=== PATIENT | male | born 1975 | race Caucasian/White ===

== ENCOUNTER 2017-12-23 07:44 | Outpatient (RCR) | payer MEDICARE, MEDICAID ==
[~2017-12-23 07:44] MED LIST: ACET-2043 PO; ALLO-119 PO; BACOUD TP; CALC-630 PO; CETY454C2 TP; CHOL200022; CHOL200025 PO; CHOL200038 PO; CLIN-75 PO; CYA1000 PO; EZET10TA41 PO; GEMF600T91 PO; GUAI-244 PO; GUAI-537 PO; HYDR28.415 TP; LEVO137T23 PO; LEVO150T78 PO; LOPE-84 PO; LOR5/325 PO; LORA-1455 PO; MAGN1TAB2 PO; MELA1TAB27 PO; MENT118G; MULT1TAB64 PO; NAPR-744 PO; OXYGENHOME INH; PROC10TA4 PO; VITA-200 PO
[2017-12-23 08:15] VITALS: BP 115/65
[2017-12-23] MEDS ORDERED: VIT1CAPS42 PO (08:33)
[2017-12-23] MEDS ORDERED: GUAI-244 PO (08:48)
[2017-12-23] MEDS ORDERED: CHOL10005 PO (08:48)
--- NOTE | 2017-12-23 15:57 | ONCOLOGY FOLLOW UP NOTE ---
EVENT DATE: December 23, 2017 DIAGNOSES 1. 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 2. Hypothyroidism. 3. History of stomach ulcer. 4. History of sleep apnea. 5. History of depression. CHIEF COMPLAINT The patient is here today for followup of his seminoma of the left testicle. ONCOLOGY HISTORY The patient is a 41-year-old male with Down syndrome from the [facility]. 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 The patient is doing very well without any complaints except for mild fatigue sometime, but he is working two days per week and having classes another two days, and this could be the reason for his fatigue. PRESENTATION Abnormal testicular exam during his annual followup done by his primary care provider, GITA Saunders. DIAGNOSTIC EVALUATION Testicular ultrasound done May 31, 2015 revealed 3.3 x 2.3 cm lobulated, hypoechoic left intratesticular mass, highly concerning for malignancy. The right testicle was normal. Alpha fetoprotein was normal at 5.4. Beta HCG was less than 1. PROCEDURE Left radical orchiectomy done on June 10, 2015. PATHOLOGY Positive for 3.5 x 3 x 2.5 cm classic type seminoma with negative margins. The tumor was confined to the testis with focal involvement of the rete testis. Lymphovascular invasion was positive. No lymph nodes removed. STAGING WORKUP CT of abdomen and pelvis done on June 20, 2015 showed post surgical changes in the left inguinal region with marked bladder wall thickening, but no retroperitoneal lymphadenopathy. Chest x-ray done on June 20, 2015 without any acute cardiopulmonary process seen. STAGE Stage IB (pT2 pNx cM0). TREATMENT The patient started treatment with carboplatin AUC of 7 on August 02, 2015. The patient completed two cycles of carboplatin AUC of 7 on August 23, 2015. HISTORY OF PRESENT ILLNESS Patient is here today for followup of his seminoma of the left testicle. He is doing very well currently, except for recent upper respiratory tract infection with runny nose, sore throat, cough, shortness of breath and wheezing. Other than that he is stable. PAST MEDICAL HISTORY 1. Stomach ulcer. 2. Hypothyroidism. 3. Heart murmur. 4. Sleep apnea on CPAP. 5. Depression. PAST SURGICAL HISTORY 1. [place] tooth extraction. 2. Placement of ear tube. 3. Tonsillectomy. 4. Left radical orchiectomy done May 23, 2015. FAMILY HISTORY Mother is alive. She lives in [place]. She is his guardian, but no family history could be obtained from the patient. SOCIAL HISTORY The patient has Down syndrome. He lives at [facility]. No abuse of tobacco, alcohol or drugs. CURRENT MEDICATIONS 1. Tylenol p.r.n. 2. Allopurinol 300 mg daily. 3. Antacid chewable tablet 500 mg tablet. 4. Antidiarrheal p.r.n. 5. Baby oil one drop in the ear. 6. Bacitracin zinc ointment topically p.r.n. 7. Biofreeze topically p.r.n. 8. Cetaphil cream topical. 9. Cetaphil daily, superficial lotion topically. 10. Clindamycin 600 mg oral. 11. Gemfibrozil 600 mg tablet twice daily. 12. Hydrocodone/APAP 5/325 mg q.4h. p.r.n. 13. Hydrocortisone 1% cream for itchy skin. 14. Levothyroxine 137 mcg every other day to alternate with 150 mcg. 15. Melatonin 3 mg tablet once daily. 16. Multivitamin once daily. 17. Naproxen 220 mg as needed. 18. CPAP. 19. Oyster shell calcium 500 mg tablet once daily. 20. Robafen 100 mg/5 mL syrup as needed. 21. Vitamin D3 at 2000 U daily. 22. Vitamin E 400 U daily. 23. Zetia 10 mg tablet daily. ALLERGIES INSULIN, AUGMENTIN, AMOXICILLIN. REVIEW OF SYSTEMS CONSTITUTIONAL: No appetite or weight change. No fever, chills or sweating. No recent infection. HEENT: Ears: No tinnitus or hearing problem. Nose: He has nasal discharge. No epistaxis. Throat: He has sore throat. No mouth ulcers. Eyes: No diplopia or visual changes. RESPIRATORY: He has cough, shortness of breath and wheezing. No expectoration or hemoptysis. CARDIOVASCULAR: No chest pain, orthopnea, or paroxysmal nocturnal dyspnea (PND) . No edema. No palpitations. GASTROINTESTINAL: No nausea or vomiting. No diarrhea or constipation. No change in bowel movements. No heartburn or swallowing difficulties. No abdominal pain. No jaundice. No hematemesis, melena or rectal bleeding. GENITOURINARY: No hematuria or dysuria. MUSCULOSKELETAL: No pain in the muscles, joints or bones. NEUROLOGICAL: No tingling or numbness in the hands or feet. No headaches or convulsions. HEMATOLOGIC/LYMPHATIC: He is weak, tired, and fatigued. SKIN: No skin rash or lumps. PSYCHIATRIC: No anxiety or depression. PHYSICAL EXAMINATION GENERAL: Looks stable. Well-developed, well-nourished, and in no acute distress. VITAL SIGNS: Blood pressure 115/65, pulse 88 per minute, respirations 16 per minute, temperature 99.8, pulse ox 85% on room air. HEENT: Head: Atraumatic. No sinus tenderness to palpation. Eyes: No icterus or conjunctivitis. Mouth and throat: No oral thrush or mucositis. NECK: Supple. No cervical or supraclavicular lymphadenopathy. LUNGS: Clear to auscultation and percussion bilaterally. HEART: Regular rate and rhythm. No gallops, murmurs, clicks or rubs. ABDOMEN: Soft and lax. No tenderness. No hepatosplenomegaly. No masses. EXTREMITIES: No cyanosis, clubbing or edema. LYMPHATICS: No peripheral lymphadenopathy. NEUROLOGICAL: Conscious, alert and oriented times three. No focal motor or sensory deficits. PSYCHIATRIC: The patient has mental retardation from his Down syndrome, but his IQ is higher than other Down syndrome patients. SKIN: No skin rash, bruise or purpuric eruption. DIAGNOSTIC DATA CBC showed white count 5.5, hemoglobin 18.4, hematocrit 52.2, platelets 231, 000. Chem panel is totally normal, except blood sugar 48. Alpha fetoprotein is normal at 5.4. Beta HCG is normal at less than 1, and the LDH is normal at 141. Chem panel is totally normal. ASSESSMENT 1. 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 All margins were negative. Lymphovascular invasion was positive. No lymph nodes were resected. CT abdomen and pelvis and chest x-ray were negative for metastasis. The patient received two cycles of carboplatin with AUC of 7 between August 02, 2015 through August 30, 2015. Tumor markers with LDH, alpha fetoprotein and beta HCG all came within the normal range and the patient is doing very well currently except for recent upper respiratory tract infection. I am planning to continue followup. I will see him again in three months with CBC, chem panel, alpha fetoprotein, beta HCG and LDH. 2. Hypothyroidism on supplement. 3. Down syndrome. 4. History of stomach ulcer. 5. History of sleep apnea on CPAP. 6. History of depression. PLAN 1. Continue followup. 2. Patient to return in three months with CBC, chem panel, alpha fetoprotein, LDH and beta HCG. 3. Patient to contact us for any new concerns or complaints. YEIMI
== END 2018-01-05 15:03 | disposition home or self-care (01) ==
LOC: ONC 07:44
PROVIDERS: ATTEND Internal Medicine Hematology
DX: Z85.47 Personal history of malignant neoplasm of testis (principal); E03.9 Hypothyroidism, unspecified; Q90.9 Down syndrome, unspecified; Z79.899 Other long term (current) drug therapy; Z92.21 Personal history of antineoplastic chemotherapy
CPT/HCPCS: 99212

== ENCOUNTER 2018-03-31 08:41 | Outpatient (RCR) | payer MEDICARE, MEDICAID ==
[~2018-03-31 08:41] MED LIST changes: +CHOL10005 PO; +VIT1CAPS42 PO
[2018-03-31 09:06] VITALS: BP 121/73
--- NOTE | 2018-03-31 19:51 | ONCOLOGY FOLLOW UP NOTE ---
EVENT DATE: March 31, 2018 DIAGNOSES 1. Stage IB ([id number]) left testicular classic seminoma. 2. Hypothyroidism. 3. History of stomach ulcer. 4. History of sleep apnea. 5. History of depression. CHIEF COMPLAINT The patient is here today for followup of his seminoma of the left testicle. ONCOLOGY HISTORY The patient is a 43-year-old male with Down syndrome from the [facility]. 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 The patient is doing very well without any complaints except for mild fatigue sometime, but he is working two days per week and having classes another two days, and this could be the reason for his fatigue. PRESENTATION Abnormal testicular exam during his annual followup done by his primary care provider, GITA Saunders. DIAGNOSTIC EVALUATION Testicular ultrasound done May 31, 2015 revealed 3.3 x 2.3 cm lobulated, hypoechoic left intratesticular mass, highly concerning for malignancy. The right testicle was normal. Alpha fetoprotein was normal at 5.4. Beta HCG was less than 1. PROCEDURE Left radical orchiectomy done on June 10, 2015. PATHOLOGY Positive for 3.5 x 3 x 2.5 cm classic type seminoma with negative margins. The tumor was confined to the testis with focal involvement of the rete testis. Lymphovascular invasion was positive. No lymph nodes removed. STAGING WORKUP CT of abdomen and pelvis done on June 20, 2015 showed post surgical changes in the left inguinal region with marked bladder wall thickening, but no retroperitoneal lymphadenopathy. Chest x-ray done on June 20, 2015 without any acute cardiopulmonary process seen. STAGE Stage IB (pT2 pNx cM0). TREATMENT The patient started treatment with carboplatin AUC of 7 on August 02, 2015. The patient completed two cycles of carboplatin AUC of 7 on August 23, 2015. HISTORY OF PRESENT ILLNESS Patient is here today for followup of his seminoma of the left testicle. He is doing fine currently except for some nasal discharge and exertional shortness of breath because of gaining weight. PAST MEDICAL HISTORY 1. Stomach ulcer. 2. Hypothyroidism. 3. Heart murmur. 4. Sleep apnea on CPAP. 5. Depression. PAST SURGICAL HISTORY 1. [place] tooth extraction. 2. Placement of ear tube. 3. Tonsillectomy. 4. Left radical orchiectomy done May 23, 2015. FAMILY HISTORY Mother is alive. She lives in [place]. She is his guardian, but no family history could be obtained from the patient. SOCIAL HISTORY The patient has Down syndrome. He lives at [facility]. No abuse of tobacco, alcohol or drugs. CURRENT MEDICATIONS 1. Tylenol p.r.n. 2. Allopurinol 300 mg daily. 3. Antacid chewable tablet 500 mg tablet. 4. Antidiarrheal p.r.n. 5. Baby oil one drop in the ear. 6. Bacitracin zinc ointment topically p.r.n. 7. Biofreeze topically p.r.n. 8. Cetaphil cream topical. 9. Cetaphil daily, superficial lotion topically. 10. Clindamycin 600 mg oral. 11. Gemfibrozil 600 mg tablet twice daily. 12. Hydrocodone/APAP 5/325 mg q.4h. p.r.n. 13. Hydrocortisone 1% cream for itchy skin. 14. Levothyroxine 137 mcg every other day to alternate with 150 mcg. 15. Melatonin 3 mg tablet once daily. 16. Multivitamin once daily. 17. Naproxen 220 mg as needed. 18. CPAP. 19. Oyster shell calcium 500 mg tablet once daily. 20. Robafen 100 mg/5 mL syrup as needed. 21. Vitamin D3 at 2000 U daily. 22. Vitamin E 400 U daily. 23. Zetia 10 mg tablet daily. ALLERGIES INSULIN, AUGMENTIN, AMOXICILLIN. REVIEW OF SYSTEMS CONSTITUTIONAL: No appetite or weight change. No fever, chills or sweating. No recent infection. HEENT: Ears: No tinnitus or hearing problem. Nose: He has nasal discharge. No epistaxis. Throat: He has sore throat. No mouth ulcers. Eyes: No diplopia or visual changes. RESPIRATORY: He has exertional shortness of breath. No expectoration or hemoptysis. CARDIOVASCULAR: No chest pain, orthopnea, or paroxysmal nocturnal dyspnea (PND) . No edema. No palpitations. GASTROINTESTINAL: No nausea or vomiting. No diarrhea or constipation. No change in bowel movements. No heartburn or swallowing difficulties. No abdominal pain. No jaundice. No hematemesis, melena or rectal bleeding. GENITOURINARY: No hematuria or dysuria. MUSCULOSKELETAL: No pain in the muscles, joints or bones. NEUROLOGICAL: No tingling or numbness in the hands or feet. No headaches or convulsions. HEMATOLOGIC/LYMPHATIC: He is weak, tired, and fatigued. SKIN: No skin rash or lumps. PSYCHIATRIC: No anxiety or depression. PHYSICAL EXAMINATION GENERAL: Looks stable. Well-developed, well-nourished, and in no acute distress. VITAL SIGNS: Blood pressure 121/73, pulse 70 per minute, respirations 16 per minute, temperature 97.4, pulse ox 90% on room air. HEENT: Head: Atraumatic. No sinus tenderness to palpation. Eyes: No icterus or conjunctivitis. Mouth and throat: No oral thrush or mucositis. NECK: Supple. No cervical or supraclavicular lymphadenopathy. LUNGS: Clear to auscultation and percussion bilaterally. HEART: Regular rate and rhythm. No gallops, murmurs, clicks or rubs. ABDOMEN: Soft and lax. No tenderness. No hepatosplenomegaly. No masses. EXTREMITIES: No cyanosis, clubbing or edema. LYMPHATICS: No peripheral lymphadenopathy. NEUROLOGICAL: He is conscious, alert. No focal motor or sensory deficits. PSYCHIATRIC: The patient has mental retardation from his Down syndrome, but his IQ is higher than other Down syndrome patients. SKIN: No skin rash, bruise or purpuric eruption. DIAGNOSTIC DATA CBC showed white count 4.6, hemoglobin 18.4, hematocrit 54.9, platelets 270, 000. Chem panel is totally normal, except blood sugar 102. Other parameters are normal. Alpha fetoprotein is 5. Beta HCG is less than 1. LDH is normal at 145. Other parameters are okay. ASSESSMENT 1. 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 All margins were negative. Lymphovascular invasion was positive. No lymph nodes were resected. CT abdomen and pelvis and chest x-ray were negative for metastasis. The patient received two cycles of carboplatin with AUC of 7 between August 02, 2015 through August 30, 2015. Tumor markers with LDH, alpha fetoprotein and beta HCG all came within the normal range. Patient is doing fine currently. I am planning to continue followup. I will see him again in three months with CBC, chem panel, LDH, alpha fetoprotein and beta HCG.. 2. Hypothyroidism on supplement. 3. Down syndrome. 4. History of stomach ulcer. 5. History of sleep apnea on CPAP. 6. History of depression. PLAN 1. Continue followup. 2. Patient to return in three months with CBC, chem panel, alpha fetoprotein, LDH and beta HCG. 3. Patient to contact us for any new concerns or complaints. YEIMI
== END 2018-04-01 09:24 | disposition home or self-care (01) ==
LOC: ONC 08:41
PROVIDERS: ATTEND Internal Medicine Hematology
DX: Z85.47 Personal history of malignant neoplasm of testis (principal); E03.9 Hypothyroidism, unspecified; Q90.9 Down syndrome, unspecified; Z79.899 Other long term (current) drug therapy
CPT/HCPCS: 99212

== ENCOUNTER 2018-10-21 08:44 | Outpatient (RCR) | payer MEDICARE, MEDICAID ==
[2018-07-29 11:00] VITALS: BP 122/64
--- NOTE | 2018-07-29 19:26 | ONCOLOGY FOLLOW UP NOTE ---
EVENT DATE: July 29, 2018 DIAGNOSES 1. Stage IB (pT2 pNX cM0) left testicular classic seminoma. 2. Hypothyroidism. 3. History of stomach ulcer. 4. History of sleep apnea. 5. History of depression. CHIEF COMPLAINT The patient is here today for followup of his seminoma of the left testicle. ONCOLOGY HISTORY The patient is a 43-year-old male with Down syndrome from [facility]. 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 The patient is doing very well without any complaints except for mild fatigue sometime, but he is working two days per week and having classes another two days, and this could be the reason for his fatigue. PRESENTATION Abnormal testicular exam during his annual followup done by his primary care provider, GITA Saunders. DIAGNOSTIC EVALUATION Testicular ultrasound done May 31, 2015, revealed 3.3 x 2.3 cm lobulated, hypoechoic left intratesticular mass, highly concerning for malignancy. The right testicle was normal. Alpha fetoprotein was normal at 5.4. Beta hCG was less than 1. PROCEDURE Left radical orchiectomy done on June 10, 2015. PATHOLOGY Positive for 3.5 x 3 x 2.5 cm classic type seminoma with negative margins. The tumor was confined to the testis with focal involvement of the rete testis. Lymphovascular invasion was positive. No lymph nodes removed. STAGING WORKUP CT of abdomen and pelvis done on June 20, 2015, showed postsurgical changes in the left inguinal region with marked bladder wall thickening, but no retroperitoneal lymphadenopathy. Chest x-ray done on June 20, 2015, without any acute cardiopulmonary process seen. STAGE Stage IB (pT2 pNX cM0). TREATMENT The patient started treatment with carboplatin AUC of 7 on August 02, 2015. The patient completed two cycles of carboplatin AUC of 7 on August 23, 2015. HISTORY OF PRESENT ILLNESS Patient is here today for followup of his seminoma of the left testicle. He is doing fine currently. He has occasional nasal discharge and increased frequency of urine. He is a little bit weak and tired sometimes, but other than that, he is really doing very well. PAST MEDICAL HISTORY 1. Stomach ulcer. 2. Hypothyroidism. 3. Heart murmur. 4. Sleep apnea, on CPAP. 5. Depression. PAST SURGICAL HISTORY 1. [place] tooth extraction. 2. Placement of ear tube. 3. Tonsillectomy. 4. Left radical orchiectomy done May 23, 2015. FAMILY HISTORY Mother is alive. She lives in [place]. She is his guardian, but no family history could be obtained from the patient. SOCIAL HISTORY The patient has Down syndrome. He lives at [facility]. No abuse of tobacco, alcohol, or drugs. CURRENT MEDICATIONS 1. Tylenol p.r.n. 2. Allopurinol 300 mg daily. 3. Antacid chewable tablet 500 mg tablet. 4. Antidiarrheal p.r.n. 5. Baby oil one drop in the ear. 6. Bacitracin zinc ointment topically p.r.n. 7. Biofreeze topically p.r.n. 8. Cetaphil cream topical. 9. Cetaphil daily, superficial lotion topically. 10. Clindamycin 600 mg oral. 11. Gemfibrozil 600 mg tablet twice daily. 12. Hydrocodone/APAP 5/325 mg q.4h. p.r.n. 13. Hydrocortisone 1% cream for itchy skin. 14. Levothyroxine 137 mcg every other day to alternate with 150 mcg. 15. Melatonin 3 mg tablet once daily. 16. Multivitamin once daily. 17. Naproxen 220 mg as needed. 18. CPAP. 19. Oyster shell calcium 500 mg tablet once daily. 20. Robafen 100 mg/5 mL syrup as needed. 21. Vitamin D3 at 2000 U daily. 22. Vitamin E 400 U daily. 23. Zetia 10 mg tablet daily. ALLERGIES INSULIN, AUGMENTIN, AMOXICILLIN. REVIEW OF SYSTEMS CONSTITUTIONAL: No appetite or weight change. No fever, chills, or sweating. No recent infection. HEENT: Ears: No tinnitus or hearing problem. Nose: He has nasal discharge. Throat: No sore throat or mouth ulcers. Eyes: No diplopia or visual changes. RESPIRATORY: No shortness of breath. No cough, expectoration, or hemoptysis. CARDIOVASCULAR: No chest pain, orthopnea, or paroxysmal nocturnal dyspnea (PND). No edema. No palpitations. GASTROINTESTINAL: No nausea or vomiting. No diarrhea or constipation. No change in bowel movements. No heartburn or swallowing difficulties. No abdominal pain. No jaundice. No hematemesis, melena, or rectal bleeding. GENITOURINARY: He has increased frequency of urine. MUSCULOSKELETAL: No pain in the muscles, joints, or bones. NEUROLOGICAL: No tingling or numbness in the hands or feet. No headaches or convulsions. HEMATOLOGIC/LYMPHATIC: No bleeding or easy bruising. He is weak, tired, and fatigued. No enlarged lymph nodes. SKIN: No skin rash or lumps. PSYCHIATRIC: No anxiety or depression. PHYSICAL EXAMINATION GENERAL: Looks stable. Well developed, well nourished, and in no acute distress. VITAL SIGNS: Blood pressure 122/64, pulse 70 per minute, respirations 16 per minute, temperature 98, pulse ox 92% on room air. HEENT: Head: Atraumatic. No sinus tenderness to palpation. Eyes: No icterus or conjunctivitis. Mouth and throat: No oral thrush or mucositis. NECK: Supple. No cervical or supraclavicular lymphadenopathy. LUNGS: Clear to auscultation and percussion bilaterally. HEART: Regular rate and rhythm. No gallops, murmurs, clicks, or rubs. ABDOMEN: Soft and lax. No tenderness. No hepatosplenomegaly. No masses. EXTREMITIES: No cyanosis, clubbing, or edema. LYMPHATICS: No peripheral lymphadenopathy. NEUROLOGICAL: Conscious, alert, and oriented times three. No focal motor or sensory deficits. PSYCHIATRIC: Mood and affect appear normal. SKIN: No skin rash, bruise, or purpuric eruption. DIAGNOSTIC DATA CBC showed white count 6.3, hemoglobin 17.5, hematocrit 49.6, platelets 261,000. Chem panel totally normal. Alpha fetoprotein is normal at 5.2, beta hCG less than 1, and LDH is normal at 164. ASSESSMENT 1. Stage IB (pT2 pNX cM0) left testicular classic seminoma, status post left radical orchiectomy done June 10, 2015. Pathology came back positive for 3.5 x 3 x 2.5 cm classic seminoma confined to the testis with focal involvement of the rete testis. All margins were negative. Lymphovascular invasion was positive. No lymph nodes were resected. CT abdomen and pelvis and chest x-ray were negative for metastasis. The patient received two cycles of carboplatin with AUC of 7 between August 02, 2015, through August 30, 2015. Tumor markers with LDH, alpha fetoprotein, and beta hCG all came within the normal range. He is doing fine currently and in complete remission. I am planning to see him again in three months with CBC, chemistry panel, alpha fetoprotein, LDH, and beta hCG. 2. Hypothyroidism, on supplement. 3. Down syndrome. 4. History of stomach ulcer. 5. History of sleep apnea, on CPAP. 6. History of depression. PLAN 1. Continue followup. 2. Patient to return in three months with CBC, chem panel, alpha fetoprotein, LDH, and beta hCG. 3. Patient to contact us for any new concerns or complaints. YEIMI
[~2018-10-21 08:44] MED LIST changes: -GEMF600T91 PO; +GEMF600T96 PO
[2018-10-21 08:50] VITALS: BP 113/75
--- NOTE | 2018-10-21 11:34 | EL-TARABILY ONCOLOGY NOTE ---
EVENT DATE: October 21, 2018 PRIMARY CARE PHYSICIAN GITA Saunders CHIEF COMPLAINT: Followup for his seminoma of the left testicle. ONCOLOGY HISTORY The patient is a 43-year-old male with Down syndrome from [facility]. 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 The patient is doing very well without any complaints except for mild fatigue sometime, but he is working two days per week and having classes another two days, and this could be the reason for his fatigue. PRESENTATION Abnormal testicular exam during his annual followup done by his primary care provider, GITA Saunders. DIAGNOSTIC EVALUATION Testicular ultrasound done May 31, 2015, revealed 3.3 x 2.3 cm lobulated, hypoechoic left intratesticular mass, highly concerning for malignancy. The right testicle was normal. Alpha fetoprotein was normal at 5.4. Beta hCG was less than 1. PROCEDURE Left radical orchiectomy done on June 10, 2015. PATHOLOGY Positive for 3.5 x 3 x 2.5 cm classic type seminoma with negative margins. The tumor was confined to the testis with focal involvement of the rete testis. Lymphovascular invasion was positive. No lymph nodes removed. STAGING WORKUP CT of abdomen and pelvis done on June 20, 2015, showed postsurgical changes in the left inguinal region with marked bladder wall thickening, but no retroperitoneal lymphadenopathy. Chest x-ray done on June 20, 2015, without any acute cardiopulmonary process seen. STAGE Stage IB (pT2 pNX cM0). TREATMENT The patient started treatment with carboplatin AUC of 7 on August 02, 2015. The patient completed two cycles of carboplatin AUC of 7 on August 23, 2015. HISTORY OF PRESENT ILLNESS Patient is here today for followup of his seminoma of the left testicle. He is doing fine currently. His history is taken from his caregiver. There is not any significant complaint at this visit. PAST MEDICAL HISTORY 1. Stomach ulcer. 2. Hypothyroidism. 3. Heart murmur. 4. Sleep apnea, on CPAP. 5. Depression. PAST SURGICAL HISTORY 1. [place] tooth extraction. 2. Placement of ear tube. 3. Tonsillectomy. 4. Left radical orchiectomy done May 23, 2015. FAMILY HISTORY Mother is alive. She lives in [place]. She is his guardian, but no family history could be obtained from the patient. SOCIAL HISTORY The patient has Down syndrome. He lives at [facility]. No abuse of tobacco, alcohol, or drugs. CURRENT MEDICATIONS 1. Tylenol p.r.n. 2. Allopurinol 300 mg daily. 3. Antacid chewable tablet 500 mg tablet. 4. Antidiarrheal p.r.n. 5. Baby oil one drop in the ear. 6. Bacitracin zinc ointment topically p.r.n. 7. Biofreeze topically p.r.n. 8. Cetaphil cream topical. 9. Cetaphil daily, superficial lotion topically. 10. Clindamycin 600 mg oral. 11. Gemfibrozil 600 mg tablet twice daily. 12. Hydrocodone/APAP 5/325 mg q.4h. p.r.n. 13. Hydrocortisone 1% cream for itchy skin. 14. Levothyroxine 137 mcg every other day to alternate with 150 mcg. 15. Melatonin 3 mg tablet once daily. 16. Multivitamin once daily. 17. Naproxen 220 mg as needed. 18. CPAP. 19. Oyster shell calcium 500 mg tablet once daily. 20. Robafen 100 mg/5 mL syrup as needed. 21. Vitamin D3 at 2000 U daily. 22. Vitamin E 400 U daily. 23. Zetia 10 mg tablet daily. ALLERGIES INSULIN, AUGMENTIN, AMOXICILLIN. REVIEW OF SYSTEMS CONSTITUTIONAL: No appetite or weight change. No fever, chills, or sweating. No recent infection. HEENT: Ears: No tinnitus or hearing problem. Nose: He has nasal discharge. Throat: No sore throat or mouth ulcers. Eyes: No diplopia or visual changes. RESPIRATORY: No shortness of breath. No cough, expectoration, or hemoptysis. CARDIOVASCULAR: No chest pain, orthopnea, or paroxysmal nocturnal dyspnea (PND). No edema. No palpitations. GASTROINTESTINAL: No nausea or vomiting. No diarrhea or constipation. No change in bowel movements. No heartburn or swallowing difficulties. No abdominal pain. No jaundice. No hematemesis, melena, or rectal bleeding. GENITOURINARY: He has increased frequency of urine. MUSCULOSKELETAL: No pain in the muscles, joints, or bones. NEUROLOGICAL: No tingling or numbness in the hands or feet. No headaches or convulsions. HEMATOLOGIC/LYMPHATIC: No bleeding or easy bruising. He is weak, tired, and fatigued. No enlarged lymph nodes. SKIN: No skin rash or lumps. PSYCHIATRIC: No anxiety or depression. PHYSICAL EXAMINATION GENERAL: Looks stable. Well developed, well nourished, and in no acute distress. VITAL SIGNS: Blood pressure 113/75, pulse 73 per minute, respirations 16 per minute, temperature 97.5, pulse ox 91% on room air. HEENT: Head: Atraumatic. No sinus tenderness to palpation. Eyes: No icterus or conjunctivitis. Mouth and throat: No oral thrush or mucositis. NECK: Supple. No cervical or supraclavicular lymphadenopathy. LUNGS: Clear to auscultation and percussion bilaterally. HEART: Regular rate and rhythm. No gallops, murmurs, clicks, or rubs. ABDOMEN: Soft and lax. No tenderness. No hepatosplenomegaly. No masses. EXTREMITIES: No cyanosis, clubbing, or edema. LYMPHATICS: No peripheral lymphadenopathy. NEUROLOGICAL: Conscious, alert, and oriented times three. No focal motor or sensory deficits. PSYCHIATRIC: Mood and affect appear normal. SKIN: No skin rash, bruise, or purpuric eruption. DIAGNOSTIC DATA CBC showed white count 6.5, hemoglobin 17.4, hematocrit 54.4, platelets 253,000. Chem panel totally normal except sodium 145. Other parameters are normal. Tumor marker with alpha fetoprotein is normal at 6.1. Beta hCG is less than 1. LDH is normal at 170. ASSESSMENT 1. Stage IB (pT2 pNX cM0) left testicular classic seminoma, status post left radical orchiectomy done June 10, 2015. Pathology came back positive for 3.5 x 3 x 2.5 cm classic seminoma confined to the testis with focal involvement of the rete testis. All margins were negative. Lymphovascular invasion was positive. No lymph nodes were resected. CT abdomen and pelvis and chest x-ray were negative for metastasis. The patient received two cycles of carboplatin with AUC of 7 between August 02, 2015, through August 30, 2015. Tumor markers with LDH, alpha fetoprotein, and beta hCG all came within the normal range. He is doing fine currently and totally asymptomatic. I am planning to continue followup. I will see him again in four months with CBC, chem panel, alpha fetoprotein and beta hCG. 2. Hypothyroidism, on supplement. 3. Down syndrome. 4. History of stomach ulcer. 5. History of sleep apnea, on CPAP. 6. History of depression. PLAN 1. Continue followup. 2. Patient to return in four months with CBC, chem panel, LDH, alpha fetoprotein and beta hCG. 3. Patient to contact us for any new concerns or complaints. YEIMI
== END 2018-10-27 ==
LOC: ONC 08:44
PROVIDERS: ATTEND Internal Medicine Hematology
DX: Z85.47 Personal history of malignant neoplasm of testis (principal); E03.9 Hypothyroidism, unspecified; Q90.9 Down syndrome, unspecified; Z79.899 Other long term (current) drug therapy; Z92.21 Personal history of antineoplastic chemotherapy; G47.30 Sleep apnea, unspecified; F32.9 Major depressive disorder, single episode, unspecified; Z99.89 Dependence on other enabling machines and devices
CPT/HCPCS: G0463 ×2; 99212

== ENCOUNTER 2019-03-02 10:27 | Outpatient (RCR) | payer MEDICARE, MEDICAID ==
[2019-03-02 10:43] VITALS: BP 119/69
[2019-03-02 11:22] LABS: PLATELET COUNT, AUTOMATED 287 K/uL (150-450)
--- NOTE | 2019-03-02 12:05 | RADIOLOGY IMAGING REPORT ---
FACILITY: [facility] PATIENT NAME: Luther Marie : 1975 MR: [id number] V: [id number] EXAM DATE: ORDERING PHYSICIAN: JESSICA SIM TECHNOLOGIST: Location: [facility] Patient: Luther Marie : 1975 Visit/Account:[id number] Date of Sevice: 03/02/2019 Chest with lateral, two views. HISTORY: Testicular cancer. COMPARISON: 06/20/2015. The heart and mediastinum are unremarkable. No bulky adenopathy. Pulmonary vessels are unremarkable . The lungs are clear. The pleural surfaces are unremarkable. No pneumothorax. No acute bony abnorm alities. IMPRESSION: No evidence of acute cardiopulmonary or metastatic disease. Report Dictated By: Ramin Casper MD at 03/02/2019 11:57 AM Report E-Signed By: Ramin Casper MD at 03/02/2019 12:00 PM WSN:[email or web address]
--- NOTE | 2019-03-02 13:54 | EL-TARABILY ONCOLOGY NOTE ---
EVENT DATE: March 02, 2019 DIAGNOSIS Seminoma of the left testicle. CHIEF COMPLAINT Patient is here today for followup for his seminoma of the left testicle. ONCOLOGY HISTORY The patient is a 44-year-old male with Down syndrome from [facility]. 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 The patient is doing very well without any complaints except for mild fatigue sometime, but he is working two days per week and having classes another two days, and this could be the reason for his fatigue. PRESENTATION Abnormal testicular exam during his annual followup done by his primary care provider, GITA Saunders. DIAGNOSTIC EVALUATION Testicular ultrasound done May 31, 2015, revealed 3.3 x 2.3 cm lobulated, hypoechoic left intratesticular mass, highly concerning for malignancy. The right testicle was normal. Alpha fetoprotein was normal at 5.4. Beta hCG was less than 1. PROCEDURE Left radical orchiectomy done on June 10, 2015. PATHOLOGY Positive for 3.5 x 3 x 2.5 cm classic type seminoma with negative margins. The tumor was confined to the testis with focal involvement of the rete testis. Lymphovascular invasion was positive. No lymph nodes removed. STAGING WORKUP CT of abdomen and pelvis done on June 20, 2015, showed postsurgical changes in the left inguinal region with marked bladder wall thickening, but no retroperitoneal lymphadenopathy. Chest x-ray done on June 20, 2015, without any acute cardiopulmonary process seen. STAGE Stage IB (pT2 pNX cM0). TREATMENT The patient started treatment with carboplatin AUC of 7 on August 02, 2015. The patient completed two cycles of carboplatin AUC of 7 on August 23, 2015. HISTORY OF PRESENT ILLNESS Patient is here today for followup of his seminoma of the left testicle. He is really doing very well and does not have any complaint today. PAST MEDICAL HISTORY 1. Stomach ulcer. 2. Hypothyroidism. 3. Heart murmur. 4. Sleep apnea, on CPAP. 5. Depression. PAST SURGICAL HISTORY 1. [place] tooth extraction. 2. Placement of ear tube. 3. Tonsillectomy. 4. Left radical orchiectomy done May 23, 2015. FAMILY HISTORY Mother is alive. She lives in [place]. She is his guardian, but no family history could be obtained from the patient. SOCIAL HISTORY The patient has Down syndrome. He lives at [facility]. No abuse of tobacco, alcohol, or drugs. CURRENT MEDICATIONS 1. Tylenol p.r.n. 2. Allopurinol 300 mg daily. 3. Antacid chewable tablet 500 mg tablet. 4. Antidiarrheal p.r.n. 5. Baby oil one drop in the ear. 6. Bacitracin zinc ointment topically p.r.n. 7. Biofreeze topically p.r.n. 8. Cetaphil cream topical. 9. Cetaphil daily, superficial lotion topically. 10. Clindamycin 600 mg oral. 11. Gemfibrozil 600 mg tablet twice daily. 12. Hydrocodone/APAP 5/325 mg q.4h. p.r.n. 13. Hydrocortisone 1% cream for itchy skin. 14. Levothyroxine 137 mcg every other day to alternate with 150 mcg. 15. Melatonin 3 mg tablet once daily. 16. Multivitamin once daily. 17. Naproxen 220 mg as needed. 18. CPAP. 19. Oyster shell calcium 500 mg tablet once daily. 20. Robafen 100 mg/5 mL syrup as needed. 21. Vitamin D3 at 2000 U daily. 22. Vitamin E 400 U daily. 23. Zetia 10 mg tablet daily. ALLERGIES INSULIN, AUGMENTIN, AMOXICILLIN. REVIEW OF SYSTEMS CONSTITUTIONAL: No appetite or weight change. No fever, chills, or sweating. No recent infection. HEENT: Ears: No tinnitus or hearing problem. Nose: He has nasal discharge. Throat: No sore throat or mouth ulcers. Eyes: No diplopia or visual changes. RESPIRATORY: No shortness of breath. No cough, expectoration, or hemoptysis. CARDIOVASCULAR: No chest pain, orthopnea, or paroxysmal nocturnal dyspnea (PND). No edema. No palpitations. GASTROINTESTINAL: No nausea or vomiting. No diarrhea or constipation. No change in bowel movements. No heartburn or swallowing difficulties. No abdominal pain. No jaundice. No hematemesis, melena, or rectal bleeding. GENITOURINARY: He has increased frequency of urine. MUSCULOSKELETAL: No pain in the muscles, joints, or bones. NEUROLOGICAL: No tingling or numbness in the hands or feet. No headaches or convulsions. HEMATOLOGIC/LYMPHATIC: No bleeding or easy bruising. He is weak, tired, and fatigued. No enlarged lymph nodes. SKIN: No skin rash or lumps. PSYCHIATRIC: No anxiety or depression. PHYSICAL EXAMINATION GENERAL: Looks stable. Well developed, well nourished, and in no acute distress. VITAL SIGNS: Blood pressure 119/69, pulse 74 per minute, respirations 16 per minute, temperature 97.3, pulse ox 86% on room air. HEENT: Head: Atraumatic. No sinus tenderness to palpation. Eyes: No icterus or conjunctivitis. Mouth and throat: No oral thrush or mucositis. NECK: Supple. No cervical or supraclavicular lymphadenopathy. LUNGS: Clear to auscultation and percussion bilaterally. HEART: Regular rate and rhythm. No gallops, murmurs, clicks, or rubs. ABDOMEN: Soft and lax. No tenderness. No hepatosplenomegaly. No masses. EXTREMITIES: No cyanosis, clubbing, or edema. LYMPHATICS: No peripheral lymphadenopathy. NEUROLOGICAL: Conscious, alert, and oriented times three. No focal motor or sensory deficits. PSYCHIATRIC: Mood and affect appear normal. SKIN: No skin rash, bruise, or purpuric eruption. DIAGNOSTIC DATA Pending. ASSESSMENT Stage IB (pT2 pNX cM0) left testicular classic seminoma, status post left radical orchiectomy done June 10, 2015. Pathology came back positive for 3.5 x 3 x 2.5 cm classic seminoma confined to the testis with focal involvement of the rete testis. All margins were negative. Lymphovascular invasion was positive. No lymph nodes were resected. CT abdomen and pelvis and chest x-ray were negative for metastasis. Patient received two cycles of carboplatin with AUC of 7 between August 02, 2015, through August 30, 2015. Tumor markers with LDH, alpha fetoprotein, and beta hCG all are normal. Patient is totally asymptomatic. I am planning to continue followup. I will see him again in four months with CBC, chem panel, LDH, alpha fetoprotein and beta hCG. PLAN 1. Continue followup. 2. Return in four months with CBC, chem panel, LDH, alpha fetoprotein, beta hCG and chest x-ray. 3. Patient to contact us for any new concerns or complaints. YEIMI
== END 2019-04-10 14:52 | disposition home or self-care (01) ==
LOC: ONC 10:27
PROVIDERS: ATTEND Internal Medicine Hematology
DX: Z85.47 Personal history of malignant neoplasm of testis (principal); E03.9 Hypothyroidism, unspecified; Q90.9 Down syndrome, unspecified; Z79.899 Other long term (current) drug therapy; Z92.21 Personal history of antineoplastic chemotherapy
CPT/HCPCS: 36415; 71046; 82105; 83615; 84702; 85025; G0463; 82040; 82247; 82310; 82374; 82435; 82565; 82947; 84075; 84132; 84155; 84295; 84450; 84460; 84520; 99212

== ENCOUNTER → 2019-03-02 | Outpatient (CLI) | payer MEDICARE, MEDICAID ==
--- NOTE | 2019-03-02 13:54 | EL-TARABILY ONCOLOGY NOTE ---
EVENT DATE: March 02, 2019 DIAGNOSIS Seminoma of the left testicle. CHIEF COMPLAINT Patient is here today for followup for his seminoma of the left testicle. ONCOLOGY HISTORY The patient is a 44-year-old male with Down syndrome from [facility]. 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 The patient is doing very well without any complaints except for mild fatigue sometime, but he is working two days per week and having classes another two days, and this could be the reason for his fatigue. PRESENTATION Abnormal testicular exam during his annual followup done by his primary care provider, GITA Saunders. DIAGNOSTIC EVALUATION Testicular ultrasound done May 31, 2015, revealed 3.3 x 2.3 cm lobulated, hypoechoic left intratesticular mass, highly concerning for malignancy. The right testicle was normal. Alpha fetoprotein was normal at 5.4. Beta hCG was less than 1. PROCEDURE Left radical orchiectomy done on June 10, 2015. PATHOLOGY Positive for 3.5 x 3 x 2.5 cm classic type seminoma with negative margins. The tumor was confined to the testis with focal involvement of the rete testis. Lymphovascular invasion was positive. No lymph nodes removed. STAGING WORKUP CT of abdomen and pelvis done on June 20, 2015, showed postsurgical changes in the left inguinal region with marked bladder wall thickening, but no retroperitoneal lymphadenopathy. Chest x-ray done on June 20, 2015, without any acute cardiopulmonary process seen. STAGE Stage IB (pT2 pNX cM0). TREATMENT The patient started treatment with carboplatin AUC of 7 on August 02, 2015. The patient completed two cycles of carboplatin AUC of 7 on August 23, 2015. HISTORY OF PRESENT ILLNESS Patient is here today for followup of his seminoma of the left testicle. He is really doing very well and does not have any complaint today. PAST MEDICAL HISTORY 1. Stomach ulcer. 2. Hypothyroidism. 3. Heart murmur. 4. Sleep apnea, on CPAP. 5. Depression. PAST SURGICAL HISTORY 1. [place] tooth extraction. 2. Placement of ear tube. 3. Tonsillectomy. 4. Left radical orchiectomy done May 23, 2015. FAMILY HISTORY Mother is alive. She lives in [place]. She is his guardian, but no family history could be obtained from the patient. SOCIAL HISTORY The patient has Down syndrome. He lives at [facility]. No abuse of tobacco, alcohol, or drugs. CURRENT MEDICATIONS 1. Tylenol p.r.n. 2. Allopurinol 300 mg daily. 3. Antacid chewable tablet 500 mg tablet. 4. Antidiarrheal p.r.n. 5. Baby oil one drop in the ear. 6. Bacitracin zinc ointment topically p.r.n. 7. Biofreeze topically p.r.n. 8. Cetaphil cream topical. 9. Cetaphil daily, superficial lotion topically. 10. Clindamycin 600 mg oral. 11. Gemfibrozil 600 mg tablet twice daily. 12. Hydrocodone/APAP 5/325 mg q.4h. p.r.n. 13. Hydrocortisone 1% cream for itchy skin. 14. Levothyroxine 137 mcg every other day to alternate with 150 mcg. 15. Melatonin 3 mg tablet once daily. 16. Multivitamin once daily. 17. Naproxen 220 mg as needed. 18. CPAP. 19. Oyster shell calcium 500 mg tablet once daily. 20. Robafen 100 mg/5 mL syrup as needed. 21. Vitamin D3 at 2000 U daily. 22. Vitamin E 400 U daily. 23. Zetia 10 mg tablet daily. ALLERGIES INSULIN, AUGMENTIN, AMOXICILLIN. REVIEW OF SYSTEMS CONSTITUTIONAL: No appetite or weight change. No fever, chills, or sweating. No recent infection. HEENT: Ears: No tinnitus or hearing problem. Nose: He has nasal discharge. Throat: No sore throat or mouth ulcers. Eyes: No diplopia or visual changes. RESPIRATORY: No shortness of breath. No cough, expectoration, or hemoptysis. CARDIOVASCULAR: No chest pain, orthopnea, or paroxysmal nocturnal dyspnea (PND). No edema. No palpitations. GASTROINTESTINAL: No nausea or vomiting. No diarrhea or constipation. No change in bowel movements. No heartburn or swallowing difficulties. No abdominal pain. No jaundice. No hematemesis, melena, or rectal bleeding. GENITOURINARY: He has increased frequency of urine. MUSCULOSKELETAL: No pain in the muscles, joints, or bones. NEUROLOGICAL: No tingling or numbness in the hands or feet. No headaches or convulsions. HEMATOLOGIC/LYMPHATIC: No bleeding or easy bruising. He is weak, tired, and fatigued. No enlarged lymph nodes. SKIN: No skin rash or lumps. PSYCHIATRIC: No anxiety or depression. PHYSICAL EXAMINATION GENERAL: Looks stable. Well developed, well nourished, and in no acute distress. VITAL SIGNS: Blood pressure 119/69, pulse 74 per minute, respirations 16 per minute, temperature 97.3, pulse ox 86% on room air. HEENT: Head: Atraumatic. No sinus tenderness to palpation. Eyes: No icterus or conjunctivitis. Mouth and throat: No oral thrush or mucositis. NECK: Supple. No cervical or supraclavicular lymphadenopathy. LUNGS: Clear to auscultation and percussion bilaterally. HEART: Regular rate and rhythm. No gallops, murmurs, clicks, or rubs. ABDOMEN: Soft and lax. No tenderness. No hepatosplenomegaly. No masses. EXTREMITIES: No cyanosis, clubbing, or edema. LYMPHATICS: No peripheral lymphadenopathy. NEUROLOGICAL: Conscious, alert, and oriented times three. No focal motor or sensory deficits. PSYCHIATRIC: Mood and affect appear normal. SKIN: No skin rash, bruise, or purpuric eruption. DIAGNOSTIC DATA Pending. ASSESSMENT Stage IB (pT2 pNX cM0) left testicular classic seminoma, status post left radical orchiectomy done June 10, 2015. Pathology came back positive for 3.5 x 3 x 2.5 cm classic seminoma confined to the testis with focal involvement of the rete testis. All margins were negative. Lymphovascular invasion was positive. No lymph nodes were resected. CT abdomen and pelvis and chest x-ray were negative for metastasis. Patient received two cycles of carboplatin with AUC of 7 between August 02, 2015, through August 30, 2015. Tumor markers with LDH, alpha fetoprotein, and beta hCG all are normal. Patient is totally asymptomatic. I am planning to continue followup. I will see him again in four months with CBC, chem panel, LDH, alpha fetoprotein and beta hCG. PLAN 1. Continue followup. 2. Return in four months with CBC, chem panel, LDH, alpha fetoprotein, beta hCG and chest x-ray. 3. Patient to contact us for any new concerns or complaints. YEIMI
== END ==
LOC: RAD 11:13
PROVIDERS: ATTEND Internal Medicine Hematology
DX: C62.90 Malignant neoplasm of unspecified testis, unspecified whether descended or undescended (principal)